=== PATIENT | female | born 1955 | race Caucasian/White ===

== ENCOUNTER → 2017-12-07 10:32 | Outpatient (CLI) | payer OTHER, SELFPAY ==
--- NOTE | 2017-12-07 10:35 | BI_ITS ---
MAMMOGRAPHY - BILATERAL SCREENING REASON FOR EXAM: Female, 62 years old. Routine annual screening examination. PERTINENT HISTORY: Aunt with breast cancer. TECHNIQUE: Digital bilateral breast leonor (3D mammographic acquisition) in the CC and MLO projections. 2-D mediolateral oblique (MLO) and craniocaudad (CC) views of both breasts were obtained. CAD: Full Field Digital Mammography with Computer Added Detection was performed. COMPARISON: Comparison is made with prior study dated October 07, 2016 and September 10, 2015. FINDINGS: Breast Composition: The breasts are extremely dense, which lowers the sensitivity of mammography. There are no dominant masses or suspicious calcifications. Stable small bilateral benign appearing axillary lymph nodes. No other significant abnormalities are identified. There has been no significant change since the prior study. BI/SCREENING MAMM (CAD), BILAT IMPRESSION: Stable bilateral screening mammogram. Yearly follow-up mammogram recommended. (A) ASSESSMENT CATEGORY: BIRADS Category 2: Benign. A letter regarding these results will be sent to the patient by the facility within 30 days. Approximately 10% of breast cancers are not detected by mammography. A normal mammogram should not delay biopsy of a clinically suspicious abnormality. [id number] Electronically Signed: Josue Linares MD at 12:51 EDT Tel [phone], Service support ,
== END ==
DX: Z12.31 Encounter for screening mammogram for malignant neoplasm of breast (principal)
CPT/HCPCS: 77063; 77067

== ENCOUNTER → 2018-07-08 16:10 | Outpatient (CLI) | payer OTHER, SELFPAY ==
--- NOTE | 2018-07-08 12:30 | COLBX_PTH ---
PATIENT: RHIANNON ROJAS LOC: [facility] U#:[id number] AGE/SX: 70/F ROOM: RE07/08/[address]: Dr. Carlo Gomez MD : 1955 BED: DIS: SPEC #: [id number] RECD: 07/08/18 15:49 STATUS: [facility] KATHE #: [id number] KAYLA: 07/08/18 12:[address]: Carlo Gomez DEPT: SURGICAL PATHOLOGY RECD BY: Mathew Avery ENTERED: 07/09/18 10:12 SP TYPE: COLON BX MARCELL DR: Dr. Amber Montanez, [facility] Tissues: A - COLON BIOPSY B - Transverse colon Procedures: Surgery Specimen Level IV HEADER OPERATION: Colonoscopy PRE-OP DIAGNOSIS: Chronic diarrhea TISSUE SUBMITTED: A - Right and left colon biopsies, rule out microscopic colitis, B - Transverse colon polyp biopsies MICROSCOPIC DIAGNOSIS A. Right and left colon, biopsy: No significant pathologic change. No evidence of colitis. B. Transverse colon polyp, biopsy: Fragments of tubular adenoma. AM:bina 07/12/18 MICROSCOPIC DESCRIPTION Slides are reviewed. GROSS DESCRIPTION A - Received in fixative is one container labeled with the patient's name and designated right and left colon biopsy. The specimen consists of multiple irregular fragments of light blake soft tissue that in aggregate measure 2 x 0.5 x 0.1 cm. The specimen is totally submitted in one cassette. B - Received in fixative is one container labeled with the patient's name and designated transverse polyp biopsy. The specimen consists of multiple irregular fragments of light blake soft tissue that in aggregate measure 0.4 x 0.3 x 0.1 cm. The specimen is totally submitted in one cassette. / SJ:bina 07/09/18 TC:5 [facility]: [id number] [id number]
--- OUTSIDE RECORDS SUMMARY | 2018-08-24 13:47 | XMS RPT_ITS ---
:1955 Author Organization [facility] Care Team Providers Name Role Phone DR. NATALY MONTANEZ DO Attending Unavailable MARIZA CÁRDENAS, DR. INGRAM Primary Care Unavailable ALTON THAKKAR MD Attending Unavailable MARIZA CÁRDENAS, DR. INGRAM Primary Care Unavailable MARIZA CÁRDENAS, DR. INGRAM Attending Unavailable MARIZA CÁRDENAS, DR. INGRAM Primary Care Unavailable Carlo Gomez Attending Unavailable Carlo Gomez Referring Unavailable Nataly Montanez Primary Care Unavailable Nataly Montanez Attending Unavailable Nataly Montanez Referring Unavailable Nataly Montanez Primary Care Unavailable PROBLEMS PROBLEMS DATE TYPE CONDITION / CODE ATTENDING STATUS SOURCE 12/07/2017 Unknown Patrice12.31 - Nataly Montanez Active Sadiq [facility] for Repository malignant neoplasm of breast / Z12.31(ICD-10) PROCEDURES PROCEDURES No Procedure Records FoundRESULTS RESULTS COLON BIOPSY (CHOOSE Observed: 07/08/2018 Status: F Source: [facility]) 12:30 PM [facility] REPOSITORY Patient: RHIANNON ROJAS : 1955 (63/F) Acct Num: [id number] Phys: Carlo Gomez Unit Num: [id number] Loc: LABSPEC Specimen: [id number] Received: 07/08/18 - 1549 Spec Type: COLON BX TISSUES 1 TISSUES: A. COLON BIOPSY B. Transverse colon GROSS DESCRIPTION A - Received in fixative is one container labeled with the patient's name and designated right and left colon biopsy. The specimen consists of multiple irregular fragments of light blake soft tissue that in aggregate measure 2 x 0.5 x 0.1 cm. The specimen is totally submitted in one cassette. B - Received in fixative is one container labeled with the patient's name and designated transverse polyp biopsy. The specimen consists of multiple irregular fragments of light blake soft tissue that in aggregate measure 0.4 x 0.3 x 0.1 cm. The specimen is totally submitted in one cassette. / SJ:bina TC:5 CPT: 59044 x2 HEADER OPERATION: Colonoscopy PRE-OP DIAGNOSIS: Chronic diarrhea TISSUE SUBMITTED: A - Right and left colon biopsies, rule out microscopic colitis, B - Transverse colon polyp biopsies MICROSCOPIC DESCRIPTION Slides are reviewed. MICROSCOPIC DIAGNOSIS A. Right and left colon, biopsy: No significant pathologic change. No evidence of colitis. B. Transverse colon polyp, biopsy: Fragments of tubular adenoma. AM:bina 07/12/18 Signed Santo More, 07/12/18 <signature on file> Performed By: #### PCOLBX #### [facility] [address] [place] [place], [address] CMP Collected: 06/10/2018 Status: F Source: [facility] 4:30 PM [facility] REPOSITORY TYPE CODE TESTS RESULT OUT OF REFERENCE UNITS RANGE LAB GLU(LOINC) 80-115 mg/dL Glucose Level 87 LAB NA(LOINC) 136-145 mmol/L Sodium Level 139 LAB K(LOINC) 3.5-5.1 mmol/L Potassium Level 4.3 LAB CL(LOINC) 98-107 mmol/L Chloride 102 LAB CO2(LOINC) 23-31 mmol/L CO2 29 LAB EBAL(LOINC mEq/L ) Electrolyte Balance 8.0 LAB BUN(LOINC) 7-18 mg/dL BUN 16 LAB CRE(LOINC) 0.55-1.02 mg/dL Creatinine Lvl (s) 0.86 LAB BC(LOINC) 7-27 ratio BUN/Creatinine 19 Ratio LAB CA(LOINC) 8.4-10.2 mg/dL Calcium Lvl 9.3 LAB PROT(LOINC 6.4-8.2 G/dL ) Total Protein 7.5 LAB ALB(LOINC) 3.4-4.8 G/dL Albumin Level 3.9 LAB GLB(LOINC) G/dL Globulin 3.6 LAB AG(LOINC) 1.1-2.5 ratio A/G Ratio 1.1 LAB BILT(LOINC 0.2-1.0 mg/dL ) Bili Total 0.3 LAB AP(LOINC) 40-135 U/L Alk Phos 84 LAB AST(LOINC) 10-40 U/L AST/SGOT 18 LAB ALT(LOINC) 10-35 U/L ALT/SGPT 34 Performed By: #### CMP, LIPID, TSH, GFR #### [address] [address] LIPID Collected: 06/10/2018 Status: F Source: [facility] 4:30 PM [facility] REPOSITORY TYPE CODE TESTS RESULT OUT OF REFERENCE UNITS RANGE LAB CHOL(LOINC 0-200 mg/dL ) Cholesterol 176 Result Comment: Cholesterol Reference Interval: Less than 200 Desirable 200-239 Borderline high risk 240 and above High risk LAB TRIG(LOINC) 0-150 mg/dL Triglycerides High 240 Result Comment: Triglyceride Reference Interval: Less than 150 Normal 150-199 Borderline high risk 200-499 High risk 500 or higher Very high risk LAB HD(LOINC) 40-60 mg/dL HDL Low Cholesterol 38 LAB LDL(LOINC) 0-130 mg/dL LDL Cholesterol 90 Performed By: #### CMP, LIPID, TSH, GFR #### [address] [address] TSH Collected: 06/10/2018 Status: F Source: [facility] 4:30 PM [facility] EM[facility]PART[facility] REPOSITORY TYPE CODE TESTS RESULT OUT OF RANGE REFERENCE UNITS LAB TSH(LOINC) 0.36-3.74 mcIU/mL TSH 3.55 Performed By: #### CMP, LIPID, TSH, GFR #### [place] [address] [place] [address] .GFR Collected: 06/10/2018 Status: F Source: [facility] 4:30 PM [facility] REPOSITORY TYPE CODE TESTS RESULT OUT OF REFERENCE UNITS RANGE LAB GFRAA(LOINC ml/min/1.73 ) sqm GFR 81 [place] Leonean Result Comment: GFR Population mean for , Non- Americans Ages 20-29 = 116 mL/min/1.73 sq.m. Ages 30-39 = 107 mL/min/1.73 sq.m. Ages 40-49 = 99 mL/min/1.73 sq.m. Ages 50-59 = 93 mL/min/1.73 sq.m. Ages 60-69 = 85 mL/min/1.73 sq.m. Ages 70+ = 75 mL/min/1.73 sq.m. Chronic Kidney Disease: Less than 60 mL/min/1.73 square meters End Stage Renal Disease: Less than 15 mL/min/1.73 square meters LAB GFRNO(LOINC) ml/min/1.73sqm GFR Non- 67 Result Comment: GFR Population mean for , Non- Americans Ages 20-29 = 116 mL/min/1.73 sq.m. Ages 30-39 = 107 mL/min/1.73 sq.m. Ages 40-49 = 99 mL/min/1.73 sq.m. Ages 50-59 = 93 mL/min/1.73 sq.m. Ages 60-69 = 85 mL/min/1.73 sq.m. Ages 70+ = 75 mL/min/1.73 sq.m. Chronic Kidney Disease: Less than 60 mL/min/1.73 square meters End Stage Renal Disease: Less than 15 mL/min/1.73 square meters Performed By: #### CMP, LIPID, TSH, GFR #### [address] [address] [address] ABDOMEN/PELVIS W/O Observed: 01/23/2018 Status: F Source: [facility] 6:29 PM [facility] REPOSITORY ORIGINAL CT ABDOMEN/PELVIS W/O CONTRAST: Multiplanar coronal, sagittal, and axial reconstructions were reviewed on a separate workstation This exam was performed according to our departmental dose optimization program, and includes the following measures where applicable: automated exposure control, adjustment of the mAs and/or kVp accord ing to patient size and/or exam, and an iterative reconstruction algorithm. CLINICAL STATEMENT: LEFT flank pain, LEFT flank pain that goes down LEFT leg, history of kidney stones COMPARISON: MRI of the kidneys 12/27/2013, CT abdomen/pelvis 06/03/2013 FINDINGS: Evaluation is suboptimal secondary to the lack of IV contrast. Included lung bases demonstrate no focal consolidation. There is no pleural or pericardial effusion. The kidney is hypoattenuating compared to the spleen, which be seen with fatty liver disease. The unenhanced gallbladder, pancreas, spleen, and adrenal glands are unremarkable. The kidneys are symmetric in size without hydronephrosis. The ureters are normal in caliber. There is bilateral nonobstructing renal calculi. There is a 4.6 cm renal cyst in the inferior pole of the RIG HT kidney. The bladder is partially distended without focal abnormality. The uterus is surgically absent. No adnexal mass or free pelvic fluid is seen. The small bowel and colon are normal in caliber. Anastomotic sutures are noted in the sigmoid colon. The appendix is not visualized but no pericecal inflammatory changes are seen. There is no free intraperitoneal air or fluid. The abdominal aorta is normal in caliber with mild calcified atherosclerosis. No lymphadenopathy is seen in the abdomen or pelvis. No acute or suspicious osseous abnormality is identified. IMPRESSION: Bilateral nonobstructing nephrolithiasis. No obstructive uropathy. No acute findings in the abdomen or pelvis. I have personally reviewed the images of this examination and agree with the resident's findings and interpretation. Interpreted By: Norman Gresham MD Preliminary Report By: Jayashree Goff DO Electronically Signed By: Norman Gresham MD Dictated Date: 01/23/2018 6:38:22 PM Prelim Date: 01/23/2018 6:44:00 PM Sign Date: 01/23/2018 6:56:40 PM CBC Collected: 01/23/2018 Status: F Source: [facility] 6:08 PM [facility] REPOSITORY TYPE CODE TESTS RESULT OUT OF REFERENCE UNITS RANGE LAB WBC(LOINC) 4.60-10.80 10 3/mcL High WBC 11.20 LAB RBCCT(LOINC 4.20-5.40 10 6/mcL ) RBC 4.38 LAB HGB(LOINC) 12.0-16.0 G/dL Hgb 13.4 LAB HCT(LOINC) 37.0-47.0 % Hct 39.2 LAB MCV(LOINC) 80.0-94.0 fL MCV 89.4 LAB MCH(LOINC) 27.0-31.2 pg MCH 30.5 LAB MCHC(LOINC) 33.0-37.0 G/dL MCHC 34.2 LAB RDW(LOINC) 11.5-14.5 % RDW 13.0 LAB PLT(LOINC) 130-400 10 3/mcL Platelet 340 LAB MPV(LOINC) 7.4-10.4 fL MPV 8.1 Performed By: #### CBC, ADIFF, ANEU, GFR, BMP #### [address] [address] .AUTO DIFF Collected: 01/23/2018 Status: F Source: [facility] 6:08 PM [facility] REPOSITORY TYPE CODE TESTS RESULT OUT OF REFERENCE UNITS RANGE LAB MELLISSA(LOINC) 37.0-80.0 % Neutrophil % 57.8 LAB LYM(LOINC) 10.0-50.0 % Lymphocyte % 34.4 LAB MON(LOINC) 1.7-13.0 % Monocyte % 6.3 LAB EO(LOINC) 0.0-7.0 % Eosinophil % 1.3 LAB BAS(LOINC) 0.0-2.5 % Basophil % 0.2 LAB ABLYM(LOIN 0.77-3.85 10 3/mcL C) High Lymphocyte, 3.90 Absolute LAB SHAR(LOINC 0.15-1.00 10 3/mcL ) Monocyte, 0.70 Absolute LAB AEOS(LOINC 0.00-0.40 10 3/mcL ) Eosinophil, 0.10 Absolute LAB ABAS(LOINC 0.00-0.19 10 3/mcL ) Basophil, 0.00 Absolute Performed By: #### CBC, ADIFF, ANEU, GFR, BMP #### [address] [address] .NEUABS Collected: 01/23/2018 Status: F Source: [facility] 6:08 PM [facility] REPOSITORY TYPE CODE TESTS RESULT OUT OF REFERENCE UNITS RANGE LAB ANEU(LOINC) 2.85-6.16 10 3/mcL High Neutrophil, 6.50 Absolute Performed By: #### CBC, ADIFF, ANEU, GFR, BMP #### [place] [address] [address] .GFR Collected: 01/23/2018 Status: F Source: [facility] 6:08 PM [facility] REPOSITORY TYPE CODE TESTS RESULT OUT OF REFERENCE UNITS RANGE LAB GFRAA(LOINC ml/min/1.73 ) sqm GFR >60 [place] Leonean Result Comment: GFR Population mean for , Non- Americans Ages 20-29 = 116 mL/min/1.73 sq.m. Ages 30-39 = 107 mL/min/1.73 sq.m. Ages 40-49 = 99 mL/min/1.73 sq.m. Ages 50-59 = 93 mL/min/1.73 sq.m. Ages 60-69 = 85 mL/min/1.73 sq.m. Ages 70+ = 75 mL/min/1.73 sq.m. Chronic Kidney Disease: Less than 60 mL/min/1.73 square meters End Stage Renal Disease: Less than 15 mL/min/1.73 square meters LAB GFRNO(LOINC) ml/min/1.73sqm GFR Non- >60 Result Comment: GFR Population mean for , Non- Americans Ages 20-29 = 116 mL/min/1.73 sq.m. Ages 30-39 = 107 mL/min/1.73 sq.m. Ages 40-49 = 99 mL/min/1.73 sq.m. Ages 50-59 = 93 mL/min/1.73 sq.m. Ages 60-69 = 85 mL/min/1.73 sq.m. Ages 70+ = 75 mL/min/1.73 sq.m. Chronic Kidney Disease: Less than 60 mL/min/1.73 square meters End Stage Renal Disease: Less than 15 mL/min/1.73 square meters Performed By: #### CBC, ADIFF, ANEU, GFR, BMP #### [place] [address] [address] BMP Collected: 01/23/2018 Status: F Source: [facility] 6:08 PM [facility] REPOSITORY TYPE CODE TESTS RESULT OUT OF REFERENCE UNITS RANGE LAB GLU(LOINC) 80-115 mg/dL Glucose Level 96 LAB NA(LOINC) 136-146 mEq/L Sodium Level 143 LAB K(LOINC) 3.5-5.1 mEq/L Potassium Level 4.3 LAB CL(LOINC) 98-107 mEq/L Chloride 104 LAB CO2(LOINC) 23-31 mEq/L CO2 26 LAB EBAL(LOINC mEq/L ) Electrolyte Balance 13.0 LAB BUN(LOINC) 7.0-18.0 mg/dL BUN 15.5 LAB CRE(LOINC) 0.6-1.2 mg/dL Creatinine Lvl (s) 0.8 LAB BC(LOINC) 7-27 ratio BUN/Creatinine 19 Ratio LAB CA(LOINC) 8.4-10.2 mg/dL Calcium Lvl 9.8 Performed By: #### CBC, ADIFF, ANEU, GFR, BMP #### [place] [address] [place], [place] [address] UA Collected: 01/23/2018 Status: F Source: [facility] 5:14 PM [facility] REPOSITORY TYPE CODE TESTS RESULT OUT OF RANGE REFERENCE UNITS LAB SPCUA(AMAN NC) UA Specimen Type Void LAB CLRUA(AMAN NC) UA Color Yellow LAB APPUA(AMAN Clear NC) UA Appear Unknown Cloudy LAB SGUA(LOIN C) UA Spec Grav 1.025 LAB GLUA(LOIN Negative mg/dL C) UA Glucose Negative LAB BILUA(AMAN Negative NC) UA Bili Negative LAB KETUA(AMAN Negative mg/dL NC) UA Ketones Negative LAB BLDUA(AMAN Negative NC) UA Blood Unknown Large LAB PHUA(LOIN C) UA pH 6.0 LAB PROUA(AMAN Negative mg/dL NC) UA Protein Trace LAB UROUA(AMAN E.U./dL NC) UA Urobilinogen 0.2 LAB NITUA(AMAN Negative NC) UA Nitrite Negative LAB LEUUA(AMAN Negative NC) UA Leuk Est Unknown Small Performed By: #### UA, UAMICAO #### [place] [address] [place], [place] [address] .URINALYSIS MICROSCOPIC Collected: 01/23/2018 Status: F Source: [facility] (AO) 5:14 PM [facility] REPOSITORY TYPE CODE TESTS RESULT OUT OF RANGE REFERENCE UNITS LAB WBCUA(LOIN None Seen /hpf C) Unknown UA WBC 10-15 LAB RBCUA(LOIN None Seen /hpf C) Unknown UA RBC LOADED LAB EPIUA(LOIN None Seen /hpf C) Unknown UA Squam Epithelial 5-10 LAB MUCUA(LOIN /hpf C) UA Mucous Trace LAB BACUA(LOIN /hpf C) Unknown UA Bacteria Trace Performed By: #### UA, UAMICAO #### [place] [address] [place], [place] [address] SCREENING MAMM (CAD), Observed: 12/07/2017 Status: F Source: [facility] BILAT 10:35 AM [facility] REPOSITORY [facility] Imaging Services [address] [place] [address] SCREENING MAMM (CAD), BIL MR#: [id number] Acct: [id number] Name: RHIANNON ROJAS Rep #: [id number] : 1955 F 62 From: Josue Linares MD PCP: Nataly Montanez DO Status: REG CLI Study: SCREENING MAMM (CAD), BIL Date of Exam: 12/07/17 Exam# [id number] Ordering Dr: Nataly Montanez DO MAMMOGRAPHY - BILATERAL SCREENING REASON FOR EXAM: Female, 62 years old. Routine annual screening examination. PERTINENT HISTORY: Aunt with breast cancer. TECHNIQUE: Digital bilateral breast leonor (3D mammographic acquisition) in the CC and MLO projections. 2-D mediolateral oblique (MLO) and craniocaudad (CC) views of both breasts were obtained. CAD: Full Field Digital Mammography with Computer Added Detection was performed. COMPARISON: Comparison is made with prior study dated October 07, 2016 and September 10, 2015. FINDINGS: Breast Composition: The breasts are extremely dense, which lowers the sensitivity of mammography. There are no dominant masses or suspicious calcifications. Stable small bilateral benign appearing axillary lymph nodes. No other significant abnormalities are identified. There has been no significant change since the prior study. BI/SCREENING MAMM (CAD), BILAT IMPRESSION: Stable bilateral screening mammogram. Yearly follow-up mammogram recommended. (A) ASSESSMENT CATEGORY: BIRADS Category 2: Benign. A letter regarding these results will be sent to the patient by the facility within 30 days. Approximately 10% of breast cancers are not detected by mammography. A normal mammogram should not delay biopsy of a clinically suspicious abnormality. [id number] Electronically Signed: Josue Linares MD at 12:51 EDT Tel [phone], Service support , CC: Nataly Montanez DO Instrumentation Tech: Signed TSH Collected: 10/13/2017 Status: F Source: [facility] 5:06 PM [facility] REPOSITORY TYPE CODE TESTS RESULT OUT OF RANGE REFERENCE UNITS LAB TSH(LOINC) 0.27-4.20 mcIU/mL TSH 1.88 Performed By: #### TSH, LIPID, GFR, CMP #### [place] [address] [place], [place] [address] LIPID Collected: 10/13/2017 Status: F Source: [facility] 5:06 PM [facility] REPOSITORY TYPE CODE TESTS RESULT OUT OF REFERENCE UNITS RANGE LAB CHOL(LOINC 131-200 mg/dL ) Cholesterol 181 Result Comment: Cholesterol Reference Interval: Less than 200 Desirable 200-239 Borderline high risk 240 and above High risk LAB TRIG(LOINC) 40-150 mg/dL Triglycerides High 178 Result Comment: Triglyceride Reference Interval: Less than 150 Normal 150-199 Borderline high risk 200-499 High risk 500 or higher Very high risk LAB HD(LOINC) 35-90 mg/dL HDL Cholesterol 51 Result Comment: HDL Reference Interval: Less than 40 Low - high risk 60 or above Optimal/lowers risk LAB LDL(LOINC) 0-130 mg/dL LDL Cholesterol 94 Result Comment: LDL is a calculated result and requires a 12-hr fast. LDL Reference Interval: Less than 100 Optimal 100-129 Near or above optimal 130-159 Borderline high risk 160-189 High risk 190 and above Very high risk Performed By: #### TSH, LIPID, GFR, CMP #### [place] [address] [place], [place] [address] .GFR Collected: 10/13/2017 Status: F Source: [facility] 5:06 PM [facility] REPOSITORY TYPE CODE TESTS RESULT OUT OF REFERENCE UNITS RANGE LAB GFRAA(LOINC ml/min/1.73 ) sqm GFR 95 [place]an Result Comment: GFR Population mean for , Non- Americans Ages 20-29 = 116 mL/min/1.73 sq.m. Ages 30-39 = 107 mL/min/1.73 sq.m. Ages 40-49 = 99 mL/min/1.73 sq.m. Ages 50-59 = 93 mL/min/1.73 sq.m. Ages 60-69 = 85 mL/min/1.73 sq.m. Ages 70+ = 75 mL/min/1.73 sq.m. Chronic Kidney Disease: Less than 60 mL/min/1.73 square meters End Stage Renal Disease: Less than 15 mL/min/1.73 square meters LAB GFRNO(LOINC) ml/min/1.73sqm GFR Non- >60 Result Comment: GFR Population mean for , Non- Americans Ages 20-29 = 116 mL/min/1.73 sq.m. Ages 30-39 = 107 mL/min/1.73 sq.m. Ages 40-49 = 99 mL/min/1.73 sq.m. Ages 50-59 = 93 mL/min/1.73 sq.m. Ages 60-69 = 85 mL/min/1.73 sq.m. Ages 70+ = 75 mL/min/1.73 sq.m. Chronic Kidney Disease: Less than 60 mL/min/1.73 square meters End Stage Renal Disease: Less than 15 mL/min/1.73 square meters Performed By: #### TSH, LIPID, GFR, CMP #### [place] [address] [place], [place] [address] CMP Collected: 10/13/2017 Status: F Source: [facility] 5:06 PM [facility] REPOSITORY TYPE CODE TESTS RESULT OUT OF REFERENCE UNITS RANGE LAB 1547-9 80-115 mg/dL GLUCOSE 103 LAB NA(LOINC) 136-146 mEq/L Sodium Level 138 LAB K(LOINC) 3.5-5.1 mEq/L Potassium Level 4.5 LAB CL(LOINC) 98-107 mEq/L Chloride 102 LAB CO2(LOINC) 23-31 mEq/L CO2 28 LAB EBAL(LOINC mEq/L ) Electrolyte Balance 8.0 LAB BUN(LOINC) 7.0-18.0 mg/dL BUN High 18.1 LAB CRE(LOINC) 0.6-1.2 mg/dL Creatinine Lvl (s) 0.8 LAB BC(LOINC) 7-27 ratio BUN/Creatinine 23 Ratio LAB CA(LOINC) 8.4-10.2 mg/dL Calcium Lvl 9.9 LAB PROT(LOINC 6.0-8.3 G/dL ) Total Protein 7.9 LAB ALB(LOINC) 3.4-4.8 G/dL Albumin Level 4.3 LAB GLB(LOINC) G/dL Globulin 3.6 LAB AG(LOINC) 1.1-2.5 ratio A/G Ratio 1.2 LAB BILT(LOINC 0.2-1.0 mg/dL ) Bili Total 0.3 LAB AP(LOINC) 40-135 IU/L Alk Phos 73 LAB AST(LOINC) 10-40 IU/L AST/SGOT 21 LAB ALT(LOINC) 10-35 IU/L ALT/SGPT 30 Performed By: #### TSH, LIPID, GFR, CMP #### [place] [address] [address] ALLERGIES ALLERGIES No Allergies Records FoundENCOUNTERS ENCOUNTERS ADMIT/DISCHARGE ACCOUNT NUMBER ADMITTING ENCOUNTER LOCATION SOURCE CLASS 07/08/2018 [id number] Ambulatory [facility] ding:LABSPEC Repository 06/10/2018/06/10/20 [id number] Ambulatory BBuilding:OL [address] Repository 01/23/2018/01/24/20 [id number] Emergency BBuilding:ER [address] Repository 12/07/2017 [id number] Ambulatory [facility] ding:OPBI Repository 10/13/2017/10/14/19 [id number] Ambulatory [address] ding:OL [facility] Repository PAYERS PAYERS ENCOUNTER GUARANTOR PAYER SUBSCRIBER SOURCE 07/08/2018 BARRY Sandoval Primary RHIANNON SHOUPDOB: Sadiq [id number] Insurance:[facility] [id number] [place] Number: Repository [id number]: [phone] () Date:2018-07-08[address] [address]VY: 07/08/2018 Secondary NOT GIVENUNK [place] Insurance:SELF PAY [facility] Number: Effective Repository Date:2018-07-08 06/10/2018 RHIANNON SHOUPDOB: Primary RHIANNON SHOUPDOB: [facility] [id number] Insurance:[facility] [id number] [place] [address] Repository [place], [place] Number: [place] [address]~SHOUPTOYHA [id number]: [email or web address]) [email or web address] Date:2018-06-10 [phone] Tel: [phone] (HP) Name:ASHOK BILLY 000-0000 (WP) (HP)Tel: [phone], [place] [phone] (ON) [address]RR: 01/23/2018 RHIANNON SHOUPDOB: Primary RHIANNON SHOUPDOB: [facility] [id number] Insurance:[facility] [id number] [address] [place]ository [place], [place] Number: [place] [address]~SHOUPTOYHA [id number]: [phone]) [email or web address] Date:2018-01-23 [phone] Tel: [phone] (HP) Name:JERALD BILLY 000-0000 (WP) (HP)Tel: [phone], [place] [phone] (WP) [id number]: 12/07/2017 Barry A Primary RHIANNON SHOUPDOB: Sadiq [id number] Insurance:MEDICAL [id number] [facility] Number: Repository [id number]: [phone] [id number] (HP) Date:2017-11-12[address] [address]RB: 12/07/2017 Secondary NOT GIVENUNK [place] Insurance:SELF PAY [facility] Number: Effective Repository Date:2017-11-12 10/13/2017 RHIANNON SHOUPDOB: Primary RHIANNON SHOUPDOB: [facility] [id number] Insurance:MEDICAL [id number] [address] Number: [facility] [place] [address]~[facility] [id number] [id number]: (088) [email or web address] Date:2017-10-13 [phone] Tel: [phone] (HP) Name:JERALD CRUZFIGUEROA WENCESLAO 000-0000 (WP) (HP)Tel: [phone], [place] [phone] (WP) [id number]:
== END ==
PROVIDERS: Referring Provider Internal Medicine Gastroenterology; Visit Provider Internal Medicine Gastroenterology
DX: K52.9 Noninfective gastroenteritis and colitis, unspecified (principal)
CPT/HCPCS: 88305

== ENCOUNTER 2019-02-16 12:06 | Day surgery (SDC) | payer OTHER, SELFPAY ==
[2019-02-16 12:40] VITALS: BP 128/68; PULSE 75; RESP 16; TEMP 36.6; O2SAT 99; BMI 36.8
[2019-02-16] MEDS: Lubricating Jelly 60 GM Tube 30 GM TOPICAL (14:37)
--- NOTE | 2019-02-16 14:48 | DCINST_ITS ---
Discharge Diet: Light diet - advance as tolerated Discharge Activity: Return to Normal Activity Return to work on:: 02/18/19 May shower in (days): 1 May resume sexual activity in: No Restrictions Call your doctor if you observe: Fever of 101 or Higher Instructions: Ureteral Stents Allergies/Adverse Reactions: Allergies latex Allergy (Verified 02/16/19 12:38) Rash Medications to take at Discharge Amlodipine Besylate [Norvasc] 5 mg PO DAILY 02/14/19 Ibuprofen [Advil] 200 mg PO DAILY PRN 02/14/19 Levothyroxine [Synthroid] 175 mcg PO DAILY 02/14/19 Losartan/Hydrochlorothiazide [Losartan-Hctz 50-12.5 mg Tab] 1 ea PO DAILY 02/14/19 Tamsulosin HCl [Flomax] 0.4 mg PO QHS 02/14/19 Ciprofloxacin [Cipro] 500 mg PO BID #6 tab 02/16/19 The following prescriptions were given: Ciprofloxacin [Cipro] 500 mg PO BID #6 tab Prescription Printed Primary Care Physician: Amber Montanez DO [Primary Care Provider] - Test Results: Test results from this visit will be discussed in further detail at your follow- up appointment, if applicable. Please Follow Up With: Zay Padilla MD When: in 2 weeks, please call to make an appointment.
--- NOTE | 2019-02-16 14:50 | PCM.OPRPT ---
Report of Operation Date of Procedure: 02/16/19 Pre-Operative Diagnosis: Right ureteral stricture partial obstruction hydronephrosis Post-Operative Diagnosis: Same Surgery/Procedure Performed:: Cystoscopy, right retrograde pyelogram, balloon dilation of the ureter, right stent placement Description of Surgical Findings:: 63-year-old female was found to have a hydronephrotic right kidney with a proximal right hydroureter down to the pelvis and she has history of prior abdominal surgery multiple surgeries fairly complex. CAT scan was done and there calling for a possible stone but on my review I do not see a stone think she has some sort of functional stricture in the mid ureter recommended we proceed with a retrograde pyelogram to evaluate the stricture balloon dilation and placement of the stent. She is been having a lot of pain in the right flank and her right kidney area. 63-year-old female taken back to the operating room at the smooth induction of general anesthesia she was placed in dorsal lithotomy position. The urethra vaginal area prepped and draped in usual fashion, went into the bladder with a 21 Turkmen rigid cystourethroscope. Inspected the bladder the bladder was normal the right ear ureter right and left ureteral orifice were identified, no tumors or stones were seen within the bladder, I think cannulated the right ureteral orifice with a Glidewire and a Pollack catheter I performed a retrograde pyelogram and can see contrast going up the ureter nice and smooth normal then became narrow and then a dilated real large the dilated ureter all the way to the kidney on the right side of put a lot of contrast up in the kidney and I can then observe to the kidney he can see peristalsis within the ureter coming down to the area of narrowing he could see that the peristalsis was actually pushing urine through the area of narrowing but it was not complete narrowing but it was a functional obstruction in the mid ureter. I then advanced the balloon dilator to the area of the obstruction balloon dilated the ureter with a 15 Turkmen balloon dilator, after balloon dilating the ureter then I placed a stent on the right side it was a 6 Turkmen 24 cm stent was a stent coiled in the kidney bladder good condition drained the bladder you could see a lot of contrast draining through the stent quite rapidly and then I drained the bladder patient anesthetic was reversed taken back to PACU good condition plan to see her back in a few weeks for checkup and then will plan to get the stent out about 6 weeks to see how she does without it appears to have a minor stricture in the mid ureter with functional blockage still able to drain the kidney but it causes some mild hydronephrosis and hydroureter of the right kidney from some chronic scar tissue developed around the ureter. Type of Anesthesia:: General Drains: right stent - Admit VTE Documentation VTE Present on Admission: No VTE Mechan Device Prophylaxis: SCD's
[2019-02-16 14:56] VITALS: BP 128/68; BP 98/65; PULSE 98; RESP 16; TEMP 36.5; O2SAT 92
[2019-02-16 15:00] VITALS: BP 124/65; BP 128/68; PULSE 88; RESP 16; O2SAT 94
[2019-02-16 15:15] VITALS: BP 128/68; BP 129/69; PULSE 85; RESP 16; O2SAT 95
[2019-02-16 15:20] VITALS: BP 128/68; BP 132/73; PULSE 82; RESP 16; TEMP 36.3; O2SAT 95
[2019-02-16 15:44] VITALS: BP 128/61; BP 128/68; PULSE 80; RESP 18; TEMP 36.4; O2SAT 95
== END 2019-02-16 15:45 | disposition home or self-care (01) ==
LOC: SDC 12:10 → AC 12:19
PROVIDERS: Referring Provider Urology; Visit Provider Urology
PROC: (CPT 52332; principal; 2019-02-16 14:25)
DX: N13.1 Hydronephrosis with ureteral stricture, not elsewhere classified (principal); I10 Essential (primary) hypertension; E03.9 Hypothyroidism, unspecified; Z78.0 Asymptomatic menopausal state; Z79.899 Other long term (current) drug therapy; Z87.442 Personal history of urinary calculi; Z85.828 Personal history of other malignant neoplasm of skin
CPT/HCPCS: 00910; 52332; 52341; 76000; J7120; C1726; C1769; C2617; J2405

== ENCOUNTER → 2019-04-06 09:55 | Outpatient (CLI) | payer OTHER, SELFPAY ==
--- NOTE | 2019-04-06 09:59 | NM_ITS ---
CLINICAL: 64-year-old female with reported history of right ureteral stricture. 99m Tc MAG3 DIURETIC RENAL SCINTIGRAPHY COMPARISON: None available FINDINGS: Following the intravenous administration of 10.8 mCi of 99m Tc MAG3, renal images reveal: 1. The flow study demonstrates relatively symmetric arterial phase distribution of the radiopharmaceutical to the right-left kidneys. 2. Immediate static delayed nephrogram images depict prompt, homogeneous tracer concentration by the renal parenchyma of the left kidney and superior-mid pole of the right kidney. Decreased tracer concentration is noted in the inferior pole of the smaller right renal unit. Collecting structure visualization is defined at approximately 3 minutes following tracer injection bilaterally. Washout of the radiopharmaceutical by the renal parenchyma appears qualitatively normal in both kidneys. Prominent collecting system activity is noted during 21 minutes of pre-Lasix sequential image acquisition (R > L). 3. The [id number]-xb-[id number] ratio of total renal parenchymal function was calculated to be 43/57. Furosemide 10 mg was administered intravenously. The post Lasix T 1/2 washout of the bilateral kidney collecting system activity was calculated to be < 10 minutes, (normal < 10 minutes). NM/Renal Scan w/ Pharm Intervent IMPRESSION: 1. There is relative preservation of bilateral renal parenchymal, cortical function. 2. The prominent right and left kidney collecting systems demonstrate a normal physiologic response to induced diuresis negating the presence of significant mechanical and/or functional obstruction. Electronically Signed: Maximilian Turner DO at 14:36 EDT Tel , Service support ,
== END ==
LOC: US 04-05 14:05 → NM 09:57
PROVIDERS: Referring Provider Urology; Visit Provider Urology
DX: N13.5 Crossing vessel and stricture of ureter without hydronephrosis (principal)
CPT/HCPCS: 78708; A9562; J1940

== ENCOUNTER 2020-06-08 05:21 | Day surgery (SDC) | payer OTHER, SELFPAY ==
[2020-06-08] VITALS (7 sets, daily range): BP systolic 123–137; BP diastolic 64–81; PULSE 95–105; RESP 16–18; TEMP 36.4–37.2; O2SAT 92–100; BMI 36.1
[2020-06-08] MEDS: Lactated Ringers 1,000 ML 100 ML IV (05:49)
[2020-06-08] MEDS: Cefazolin 2 GM in 0.9% Normal Saline 100 ML IV (07:40)
[2020-06-08] MEDS: Lubricating Jelly 60 GM Tube 30 GM TOPICAL (07:40)
--- NOTE | 2020-06-08 07:59 | PCM.HP.STD ---
Problem List (1) Ureteral calculi Status: Acute History of Present Illness Date of Admission: 06/08/20 Chief Complaint: Ureteral calculi The patient is a 65 year old female who has a history of a stricture in the right mid ureter she presented to outside hospital with a stone in the same location so we were concerned that whether she had a stricture recurrence but we did take her back to surgery and go up with the ureteroscope inspect the ureter and then treat the stone possibly place a stent made the balloon dilate the stricture if it is present. Past Medical History Allergies latex Allergy (Verified 06/08/20 05:33) Rash loratadine [From Claritin-D] Allergy (Verified 06/08/20 05:33) tachycardia pseudoephedrine [From Claritin-D] Allergy (Verified 06/08/20 05:33) tachycardia meperidine [From Demerol] Adverse Reaction (Verified 06/08/20 05:33) PT UNSURE OF REACTION Home Medications: Ambulatory Orders Medication Instructions Recorded Amlodipine Besylate [Norvasc] 5 mg PO DAILY 02/14/19 Levothyroxine [Synthroid] 125 mcg PO DAILY 02/14/19 Losartan/Hydrochlorothiazide 1 ea PO DAILY 02/14/19 [Losartan-Hctz 50-12.5 mg Tab] Acetaminophen [Tylenol Extra 500 - 1,000 mg PO Q6H PRN PRN 06/06/20 Strength] Cholecalciferol (Vitamin D3) 5,000 unit PO DAILY 06/06/20 [Vitamin D3] Surgical History: no surgical history Smoking Status: Never smoker Tobacco Use: Non-smoker Review of Systems Constitutional: Denies: Chills, Fever, Weight Change HEENT: Denies: Head Aches, Sinus Congestion, Sinus Drainage Cardiovascular: Denies: Chest Pain, Palpitations Respiratory: Denies: Cough, Shortness of breath at rest, Sputum production Gastrointestinal: Denies: Abdominal Pain, Nausea, Vomiting Genitourinary: Denies: Dysuria Musculoskeletal: Denies: Joint Pain, Joint Tenderness Skin: Denies: Rash, Wounds Neurological: Denies: Numbness, Tingling, Focal weakness Psychiatric: Denies: Anxiety, Depression, Homicidal Ideations, Suicidal Ideations Hematologic/ Lymphatic: Denies: Easy Bruising, Easy Bleeding VTE Information - Inpt Only VTE Present on Admission: No - Physical Exam Vitals/I&O's: Vital Signs Temp Pulse Resp BP Pulse Ox 99.0 F 105 H 16 135/69 H 94 06/08/20 05:44 06/08/20 05:44 06/08/20 05:44 06/08/20 05:44 06/08/20 05:44 Oxygen Delivery Method Room Air Weight: 89.5 kg Body Mass Index (BMI) 36.1 Intake and Output for Last 24 Hours 06/06/20 06/07/20 06/08/20 23:59 23:59 23:59 Intake Total 110 / 110 Balance 110 / 110 General: Alert, Oriented x3, Cooperative HEENT: Atraumatic, PERRLA, EOMI, Normocephalic Neck: Supple, No JVD, Negative Carotid Bruits Lungs: Clear to auscultation, Normal air movement Cardiovascular: Regular rate, No murmurs Abdomen: Bowel Sounds Present, Soft, Non Tender Extremities: No edema, Capillary Refill Less than 3 Seconds Skin: No rashes, No breakdown Musculoskeletal: No Tenderness to Palpation of Joints or Extremities Neurological: Cranial nerves II-XII grossly intact Psych/Mental Status: Normal Affect, Appropriate Microbiology Past 72 Hours 06/07/20 10:28 Interface Orders SARS-CoV-2 Antigen (Rapid) - Final Current Medications Cefazolin Sodium 2 gm/ Sodium (Chloride) 110 mls @ 150 mls/hr IV PREOP ONE Stop: 06/08/20 12:08 Last Infusion: 06/08/20 07:51 Dose: Infused Documented by: Lactated Ringer's () 1,000 mls @ 100 mls/hr IV .Q10H JÚNIOR Last Admin: 06/08/20 05:49 Dose: 100 mls/hr Documented by: Assessment/Plan All Active Problems Ureteral calculi (Acute) Plan to proceed with ureteroscopy in the right side possible balloon dilation laser lithotripsy and stent placement.
--- NOTE | 2020-06-08 08:06 | PCM.DC.URO ---
Discharge Diet: Light diet - advance as tolerated Discharge Activity: May Not Drive, May not drive while taking narcotic pain medications. Call your doctor if your incision/area has: Sudden Increased Bleeding, Increased Pain/ Swelling Suture Line Care: Avoid Pulling/Pushing, Avoid Pinching/Bending Allergies/Adverse Reactions: Allergies latex Allergy (Verified 06/08/20 05:33) Rash loratadine [From Claritin-D] Allergy (Verified 06/08/20 05:33) tachycardia pseudoephedrine [From Claritin-D] Allergy (Verified 06/08/20 05:33) tachycardia meperidine [From Demerol] Adverse Reaction (Verified 06/08/20 05:33) PT UNSURE OF REACTION Medications to take at Discharge Amlodipine Besylate [Norvasc] 5 mg PO DAILY 02/14/19 Levothyroxine [Synthroid] 125 mcg PO DAILY 02/14/19 Losartan/Hydrochlorothiazide [Losartan-Hctz 50-12.5 mg Tab] 1 ea PO DAILY 02/14/19 Acetaminophen [Tylenol Extra Strength] 500 - 1,000 mg PO Q6H PRN PRN 06/06/20 Cholecalciferol (Vitamin D3) [Vitamin D3] 5,000 unit PO DAILY 06/06/20 Ciprofloxacin [Cipro] 500 mg PO BID #6 tab 06/08/20 Hydrocodone/Acetaminophen [[place] 5-325 Tablet] 1 ea PO Q4H PRN PRN 7 Days #14 tab 06/08/20 Ibuprofen 600 mg PO Q4H PRN PRN 10 Days #20 tab 06/08/20 The following prescriptions were given: Ciprofloxacin [Cipro] 500 mg PO BID #6 tab Transmission Status: Pending to [facility] Ibuprofen 600 mg PO Q4H PRN PRN 10 Days #20 tab PRN Reason: Pain Score 1-10 Transmission Status: Pending to [facility] Hydrocodone/Acetaminophen [[place] 5-325 Tablet] 1 ea PO Q4H PRN PRN 7 Days #14 tab PRN Reason: Pain Score 1-10 Transmission Status: Pending to [facility] Primary Care Physician: Amber Montanez DO [Primary Care Provider] - Test Results: Test results from this visit will be discussed in further detail at your follow-up appointment, if applicable. Please Follow Up With: Zay Padilla MD When: please call to make an appointment.
--- NOTE | 2020-06-08 08:08 | PCM.OPRPT ---
Problem List (1) Ureteral calculi Status: Acute Report of Operation Date of Procedure: 06/08/20 Pre-Operative Diagnosis: Right mid ureteral calculi history of ureteral stricture Post-Operative Diagnosis: Same Surgery/Procedure Performed:: Cystoscopy right retrograde pyelogram right ureteroscopy laser lithotripsy of stone, interpretation fluoroscopic images right stent placement Description of Surgical Findings:: 65-year-old female she has a history of a stricture in the mid right ureter she has a stone on recent admission to outside hospital had to have a stent placed she now presents to the operating room for ureteroscopy and laser lithotripsy possible balloon dilation of the stricture. Patient was taken back to the operating room at the smooth induction of general anesthesia. She was placed in dorsolithotomy position. The urethra vaginally are prepped and draped in usual sterile fashion. Went into the bladder with a 21 South African rigid cystourethroscope. Grabbed the existing stent pulled out the meatus. I then advanced a wire through the stent up in the kidney. I then left the wire in place I then put a Pollack catheter over the wire performed a retrograde pyelogram nice smooth contrast all the way up no stricture was evident. Hard to see the stone. I then went in with a semirigid ureteroscope was able to get the ureter quite a ways but I still could not reach the stone and the angle was too difficult so then I pulled out the semirigid and then I went in with a flexible ureteroscope was able to get into the ureter. Went up the ureter went past the area where supposedly the stricture was without any problems with the flexible scope and then I got to the stone. I then used a 270 ?m laser fiber laser the stone completely and little tiny pieces. Energy settings were 0.6 Hz and 0.6 J. Increase the hertz to 18 Hz. The stone was lasered completely smaller pieces. I work my way down the ureter again the area that was narrowed was nice wide open there was no stricture. Therefore nothing needs to be dilated no balloon dilation was performed. I work my way down the ureter. And over the safety wire that was in place I advanced a stent is a 6 South African by 26 cm stent. Once the stent was in good position I pulled the string the stent: The kidney bladder good position I did leave a string on the stent but cut it short to prevent early extraction. I need to see the patient about a week for cystoscopy stent removal. Type of Anesthesia:: General Drains: stent right side - Admit VTE Documentation VTE Present on Admission: No VTE Mechan Device Prophylaxis: SCD's
[2020-06-08] MEDS: Ketorolac 15 MG/ML Vial IV (08:34)
== END 2020-06-08 09:21 | disposition home or self-care (01) ==
LOC: SDC 05:22 → AC 05:23
PROVIDERS: Referring Provider Urology; Visit Provider Urology
PROC: 0TJ98ZZ Inspection of Ureter, Via Natural or Artificial Opening Endoscopic (ICD-10-PCS; CPT 52352; principal; 2020-06-08 07:20)
DX: N20.1 Calculus of ureter (principal); Z20.828 Contact with and (suspected) exposure to other viral communicable diseases; I10 Essential (primary) hypertension; Z78.0 Asymptomatic menopausal state; Z79.899 Other long term (current) drug therapy
CPT/HCPCS: 00918; 52356; 76000; 87426; C9803; J7120; C1769; C2617; J2405

== ENCOUNTER → 2020-07-10 07:44 | Outpatient (CLI) | payer OTHER, SELFPAY ==
[2020-06-08 05:44] VITALS: BMI 36.1
--- NOTE | 2020-07-10 07:48 | CT_ITS ---
STUDY: CT ABDOMEN AND PELVIS WITH AND WITHOUT CONTRAST REASON FOR EXAM: Female, 65 years old. CROSSING VESSEL/STRICTURE OF URETER, LB TENDERNESS, STENT IN RT KIDNEY PLACED 05/27 AND REMOVED 06/18, SURG-RT KIDNEY STENT, HOANG/BSO, APPY, MELANOMA REMOVED FROM RT SHOULDER, PARTIAL COLECTOMY RADIATION DOSAGE (If Supplied By Facility): CTDIvol = ( 22.78 ) mGy, DLP = ( 3823.3 ) mGycm TECHNIQUE: Transaxial images were obtained from the dome of the diaphragm to the symphysis pubis without oral contrast. IV 100mL Isovue-300 was administered. Sagittal and coronal images were reconstructed. Individualized dose optimization techniques were used for this CT. COMPARISON: None. FINDINGS: The visualized lung bases are unremarkable. The visualized portions of the heart are within normal limits. There is decreased attenuation of the liver consistent with steatosis. Normal gallbladder and extrahepatic biliary system. Normal spleen. Normal pancreas. There is a small, circumscribed, smooth, low attenuation left adrenal mass, consistent with an adrenal adenoma. This measures 8.9 mm. Normal right adrenal gland. There is a 3.6 cm x 3.5 cm cyst in the lower pole of the right kidney. 1 cm cyst in the upper anterior aspect of the right kidney. 1.1 cm cyst in the lateral midportion of the right kidney. Mild degree of right hydronephrosis and mild hydroureter down to the urinary bladder. There is diffuse circumferential thickening of the right renal pelvis and the proximal right ureter. No obstructive uropathy is seen at this time. Normal left kidney. There is a small hiatal hernia. Normal small intestine. Surgical anastomosis seen in the sigmoid colon. There are surgical clips in the region of the appendix consistent with a prior appendectomy. There is scattered atherosclerotic calcification of the abdominal aorta, without a demonstrated aneurysm. Normal inferior vena cava. There is borderline retroperitoneal lymphadenopathy with enlarged nodes no greater than 10mm in the short axis diameter. Normal urinary bladder. There is absence of the uterus consistent with a prior hysterectomy. Normal abdominal wall. There are mild degenerative changes of the visualized lumbar spine. Mild loss of height of the superior endplate of the L4 vertebrae. CT/CT Abd/Pelvis W/WO Contrast IMPRESSION: Mild degree of right hydronephrosis and hydroureter with diffuse parenchymal thickening of the distal portion of the right renal pelvis and proximal portion of the right ureter. Endoscopic correlation is recommended. Right renal cysts. Diffuse fatty infiltration of the liver. Small hiatal hernia. Electronically Signed: Josue Linares, at 9:08 EST , Service support ,
== END ==
PROVIDERS: Referring Provider Urology; Visit Provider Urology
DX: N13.5 Crossing vessel and stricture of ureter without hydronephrosis (principal)
CPT/HCPCS: 74178; Q9967

== ENCOUNTER 2020-10-05 11:39 | Day surgery (SDC) | payer OTHER, SELFPAY ==
[2020-06-08 05:44] VITALS: BMI 36.1
[2020-10-05 12:14] VITALS: BP 127/73; PULSE 82; RESP 16; TEMP 36.2; O2SAT 98; BMI 36.3
[2020-10-05] MEDS: Lactated Ringers 1,000 ML 100 ML IV (12:32)
--- NOTE | 2020-10-05 15:00 | PCM.HP.STD ---
Problem List (1) Ureteral stricture Status: Suspected Comment: Right possible ureteral stricture History of Present Illness Date of Admission: 10/05/20 Chief Complaint: Right flank pain The patient is a 65 year old female with history of prior abdominal surgery and she has had 2 stone events this past year in both the stones and up in the same place in the ureter on the right side and what could be a stricture but last time I balloon dilated and looked up and there was the ureter was wide open but she is still having pain in that right side and still having occasional urinary tract infections. She is being treated for a most recent urinary tract infection plan to do a cystoscopy and retrograde pyelogram to see if there is a stricture in the ureter and if there is a stricture we may have to consider doing a surgical repair/reimplantation of the right ureter. At this point we just can proceed with diagnostic cystoscopy retrograde pyelogram possible ureteroscopy. Past Medical History Allergies latex Allergy (Verified 10/05/20 12:12) Rash loratadine [From Claritin-D] Allergy (Verified 10/05/20 12:12) tachycardia pseudoephedrine [From Claritin-D] Allergy (Verified 10/05/20 12:12) tachycardia meperidine [From Demerol] Adverse Reaction (Verified 10/05/20 12:12) PT UNSURE OF REACTION Home Medications: Ambulatory Orders Medication Instructions Recorded Amlodipine Besylate [Norvasc] 5 mg PO DAILY 02/14/19 Levothyroxine [Synthroid] 125 mcg PO DAILY 02/14/19 Losartan/Hydrochlorothiazide 1 ea PO DAILY 02/14/19 [Losartan-Hctz 50-12.5 mg Tab] Acetaminophen [Tylenol Extra 500 - 1,000 mg PO Q6H PRN PRN 06/06/20 Strength] Cholecalciferol (Vitamin D3) 5,000 unit PO DAILY 06/06/20 [Vitamin D3] Cranberry Conc/Ascorbic Acid 1 ea PO DAILY 10/02/20 [Cranberry 12,600 mg Softgel] Ibuprofen 200 mg PO Q6H PRN PRN 10/02/20 Sulfamethoxazole/Trimethoprim 1 ea PO BID 10/02/20 [Bactrim Ds Tablet] Zinc Gluconate [Zinc] 50 mg PO DAILY 10/02/20 Surgical History: no surgical history Lives: Spouse/ Significant Other Smoking Status: Never smoker Tobacco Use: Non-smoker Alcohol: None - *Family History Maternal History Items: No pertinent history Review of Systems Constitutional: Denies: Chills, Fever, Weight Change HEENT: Denies: Head Aches, Sinus Congestion, Sinus Drainage Cardiovascular: Denies: Chest Pain, Palpitations Respiratory: Denies: Cough, Shortness of breath at rest, Sputum production Gastrointestinal: Denies: Abdominal Pain, Nausea, Vomiting Genitourinary: Denies: Dysuria Musculoskeletal: Denies: Joint Pain, Joint Tenderness Skin: Denies: Rash, Wounds Neurological: Denies: Numbness, Tingling, Focal weakness Psychiatric: Denies: Anxiety, Depression, Homicidal Ideations, Suicidal Ideations Hematologic/ Lymphatic: Denies: Easy Bruising, Easy Bleeding VTE Information - Inpt Only VTE Present on Admission: No VTE Mechan Device Prophylaxis: SCD's - Physical Exam Vitals/I&O's: Vital Signs Temp Pulse Resp BP Pulse Ox 97.1 F L 82 16 127/73 H 98 10/05/20 12:14 10/05/20 12:14 10/05/20 12:14 10/05/20 12:14 10/05/20 12:14 Oxygen Delivery Method Room Air Weight: 90 kg Body Mass Index (BMI) 36.3 General: Alert, Oriented x3, Cooperative HEENT: Atraumatic, PERRLA, EOMI, Normocephalic Neck: Supple, No JVD, Negative Carotid Bruits Lungs: Clear to auscultation, Normal air movement Cardiovascular: Regular rate, No murmurs Abdomen: Bowel Sounds Present, Soft, Non Tender Extremities: No edema, Capillary Refill Less than 3 Seconds Skin: No rashes, No breakdown Musculoskeletal: No Tenderness to Palpation of Joints or Extremities Neurological: Cranial nerves II-XII grossly intact Psych/Mental Status: Normal Affect, Appropriate Microbiology Past 72 Hours 10/04/20 10:25 Interface Orders SARS-CoV-2 Antigen (Rapid) - Final Current Medications Lactated Ringer's () 1,000 mls @ 100 mls/hr IV .Q10H JÚNIOR Last Admin: 10/05/20 12:32 Dose: 100 mls/hr Documented by: Assessment/Plan Plan to proceed with a diagnostic retrograde pyelogram to evaluate for possible ureteral stricture on the right side.
--- NOTE | 2020-10-05 15:03 | DCINST_ITS ---
Discharge Diet: Light diet - advance as tolerated Discharge Activity: Return to Normal Activity Call your doctor if you observe: Fever of 101 or Higher Allergies/Adverse Reactions: Allergies latex Allergy (Verified 10/05/20 12:12) Rash loratadine [From Claritin-D] Allergy (Verified 10/05/20 12:12) tachycardia pseudoephedrine [From Claritin-D] Allergy (Verified 10/05/20 12:12) tachycardia meperidine [From Demerol] Adverse Reaction (Verified 10/05/20 12:12) PT UNSURE OF REACTION Medications to take at Discharge Amlodipine Besylate [Norvasc] 5 mg PO DAILY 02/14/19 Levothyroxine [Synthroid] 125 mcg PO DAILY 02/14/19 Losartan/Hydrochlorothiazide [Losartan-Hctz 50-12.5 mg Tab] 1 ea PO DAILY 02/14/19 Acetaminophen [Tylenol Extra Strength] 500 - 1,000 mg PO Q6H PRN PRN 06/06/20 Cholecalciferol (Vitamin D3) [Vitamin D3] 5,000 unit PO DAILY 06/06/20 Cranberry Conc/Ascorbic Acid [Cranberry 12,600 mg Softgel] 1 ea PO DAILY 10/02/20 Ibuprofen 200 mg PO Q6H PRN PRN 10/02/20 Sulfamethoxazole/Trimethoprim [Bactrim Ds Tablet] 1 ea PO BID 10/02/20 Zinc Gluconate [Zinc] 50 mg PO DAILY 10/02/20 Primary Care Physician: Amber Montanez DO [Primary Care Provider] - Test Results: Test results from this visit will be discussed in further detail at your follow- up appointment, if applicable. Please Follow Up With: Zay Padilla MD When: in 2 weeks, please call to make an appointment.
[2020-10-05] MEDS: Cefazolin 2 GM in 0.9% Normal Saline 100 ML IV (15:23)
--- NOTE | 2020-10-05 15:44 | PCM.OPRPT ---
Problem List (1) Ureteral stricture Status: Suspected Comment: Right possible ureteral stricture Report of Operation Date of Procedure: 10/05/20 Pre-Operative Diagnosis: Right flank pain possible ureteral stricture Post-Operative Diagnosis: Same, normal retrograde pyelogram Surgery/Procedure Performed:: Cystoscopy right retrograde pyelogram Description of Surgical Findings:: 65-year-old female with a history of kidney stones presented with right flank pain again she has a history of a stricture in the past with balloon dilated and she is concerned that the strictures come back so today we can do a retrograde pyelogram to evaluate the kidney ureter and bladder on the right side. Patient was taken back to the operating at the [facility] of general anesthesia she was placed in dorsolithotomy position, the urethra and vaginal area were prepped and draped in usual sterile fashion I went in the bladder with a 21 Cameroonian rigid cystourethroscope cannulated the right ureteral orifice with a Pollick catheter, I then performed a retrograde pyelogram and can see contrast going all the way up along the course of the ureter there was no stricture on the retrograde pyelogram once the contrast up in the kidney then took out the Pollick catheter and the contrast drained very rapidly and easily with no obstruction on that right side. The ureter was completely normal with no stricture drainage was normal there was no hydronephrosis patient's bladder was drained and the cystoscope were removed and she was taken back to PACU in good condition I spoke to her regarding the findings. Type of Anesthesia:: General Drains: none - Admit VTE Documentation VTE Present on Admission: No VTE Mechan Device Prophylaxis: SCD's
[2020-10-05 15:52] VITALS: BP 103/54; BP 127/73; PULSE 77; RESP 16; TEMP 36.7; O2SAT 90
[2020-10-05 16:00] VITALS: BP 116/67; BP 127/73; PULSE 77; RESP 18; O2SAT 97
[2020-10-05 16:09] VITALS: BP 109/57; BP 127/73; PULSE 77; RESP 18; TEMP 36.6; O2SAT 93
[2020-10-05 17:09] VITALS: BP 112/62; BP 127/73; PULSE 76; RESP 18; TEMP 36.7; O2SAT 96
== END 2020-10-05 17:11 | disposition home or self-care (01) ==
LOC: SDC 11:39 → AC 11:40
PROVIDERS: Referring Provider Urology; Visit Provider Urology
PROC: (CPT 52332; principal; 2020-10-05 13:35)
DX: R10.9 Unspecified abdominal pain (principal); I10 Essential (primary) hypertension; E06.9 Thyroiditis, unspecified; Z79.2 Long term (current) use of antibiotics; Z79.899 Other long term (current) drug therapy; Z20.822 Contact with and (suspected) exposure to COVID-19
CPT/HCPCS: 52005; 76000; 87426; C9803; J7120; C1769; J2405

== ENCOUNTER → 2022-03-03 | Outpatient (CLI) | payer MEDICARE, SELFPAY ==
--- NOTE | 2022-03-03 14:21 | CT_ITS ---
HISTORY: PAIN. TECHNIQUE: Helically acquired images were obtained of the abdomen and pelvis without oral or IV contrast. A radiation dose optimization technique was used for this scan. 425 images. COMPARISON: 07/10/2020. FINDINGS: LOWER CHEST: Lung bases clear. BOWEL: Bowel nondilated. Appendix not visualized. Rectosigmoid anastomosis. No focal pericolonic inflammatory change. PERITONEUM: No significant free fluid. LIVER: Fatty infiltration. GALLBLADDER/BILIARY TREE: Gallbladder present. SPLEEN/PANCREAS: Not enlarged. KIDNEYS AND URETERS: 2 mm right renal and 1 mm left renal calculi. No hydronephrosis. 4.6 x 5.7 cm right lower pole cyst, previously 3.2 x 4.1 cm. ADRENAL GLANDS: No nodules. VESSELS: No abdominal aortic aneurysm. Mild atherosclerosis. PELVIC ORGANS: Hysterectomy with surgical clips in the right lower quadrant and pelvis. BONES: Mild degenerative change. Chronic minimal anterior wedging of L4. CT/Abdomen/Pelvis without Cont IMPRESSION: Small nonobstructing bilateral renal calculi. Mildly increased size of right renal cyst. Hepatic steatosis. Electronically Signed: Juliet Vazquez MD at 10:42 EDT ,
== END | disposition home or self-care (01) ==
LOC: CT 14:20
PROVIDERS: Referring Provider Urology; Visit Provider Urology
DX: R10.9 Unspecified abdominal pain (principal)
CPT/HCPCS: 74176

== ENCOUNTER → 2022-08-05 | Outpatient (CLI) | payer MEDICARE, SELFPAY ==
--- NOTE | 2022-08-05 13:46 | RAD_ITS ---
STUDY: X-RAY - ABDOMEN/PELVIS REASON FOR EXAM: Female, 67 years old. Flank pain TECHNIQUE: Two AP supine views of the abdomen and pelvis. COMPARISON: None. FINDINGS: Normal visualized lung bases. There is an unremarkable bowel gas pattern. There is no demonstrated free abdominal air. The visualized liver, spleen and kidneys are grossly normal in size and morphology. No calcifications noted overlying either renal shadow, or along the expected course of either ureter. Normal soft tissue structures. Normal visualized osseous structures. RAD/Abdomen Single View IMPRESSION: Normal x-ray examination of the abdomen and pelvis. Electronically Signed: Abdiel Early MD at 10:26 EST ,
== END | disposition home or self-care (01) ==
LOC: RAD 13:45
PROVIDERS: Referring Provider Urology; Visit Provider Urology
DX: N20.0 Calculus of kidney (principal)
CPT/HCPCS: 74018

== ENCOUNTER 2022-08-13 12:24 | Day surgery (SDC) | payer MEDICARE, SELFPAY ==
[2022-08-13] MEDS: Lactated Ringers 1,000 ML 15 ML IV (12:46)
[2022-08-13 12:48] VITALS: BP 151/77; PULSE 100; RESP 18; TEMP 37; O2SAT 99; BMI 36.2
[2022-08-13] MEDS: Cefazolin 2 GM in 0.9% Normal Saline 100 ML IV (14:01)
--- NOTE | 2022-08-13 14:11 | DCINST_ITS ---
Discharge Instructions Diet Discharge Diet: No restrictions Follow Up Care Please Follow Up With: Zay Padilla MD Test Results: Test results from this visit will be discussed in further detail at your follow- up appointment, if applicable. Discharge Plan Admission Primary Reason for Your Visit: right kidney stone Attending Provider: Zay Padilla Primary Care Provider: Amber Montanez Discharge Orders/Prescriptions Prescriptions: Continued levothyroxine 175 MCG tablet 125 mcg PO DAILY amlodipine 5 MG tablet 5 mg PO DAILY losartan-hydrochlorothiazide 1 EACH tablet 1 ea PO DAILY acetaminophen 500 MG tablet 500 - 1,000 mg PO Q6H PRN PRN (Reason: Pain 1-10 Or Fever) Cholecalciferol (Vitamin D3) [Vitamin D3] 5,000 UNIT capsule 5,000 unit PO DAILY ibuprofen 200 MG capsule 200 mg PO Q6H PRN PRN (Reason: Pain 1-10 Or Fever) Airborne (ascorbate sodium) 333-1.7 mg Tablet,Chewable 1 tab PO DAILY Referrals / Follow Up: Zay Padilla MD [Med Staff - Active Staff] - Amber Montanez DO [Primary Care Provider] - Disposition Disposition (needs filled in before D/C Order can be placed): Home, Self Care
--- NOTE | 2022-08-13 14:34 | PCM.OPRPT ---
Report of Operation Date of Procedure: 08/13/22 Pre-Operative Diagnosis: Right ureteral calculi with obstruction Post-Operative Diagnosis: Same Surgery/Procedure Performed:: Cystoscopy, right retrograde pyelogram, interpretation of fluoroscopic images, balloon dilation of the ureter, right ureteroscopy laser lithotripsy of stone and stent placement Description of Surgical Findings:: This is a patient who presents to the hospital for treatment for an obstructing RIGHT ureter calculi. I discussed with the patient how the surgery would be performed and we reviewed the risks and benefits of the surgery. The risk and benefits include the risk of failure to remove the stone completely and that the patient may need multiple procedures. We discussed the risk of an infection, the risk of bleeding. We discussed the very rare risk of serious complicated injury to the ureter. The patient understands that if the stone is not able to be removed safely that we may abort the procedure and place a stent. After full discussion and all questions address with the patient the consent form was signed the side was marked appropriately and the patient was taken back to the operating room for the procedure. The patient was taken back to the operating room. After induction of anesthesia by the anesthesiology team the patient was placed in dorsolithotomy position. The genitals were prepped and draped in usual sterile fashion. I went into the bladder with a 21 [place] rigid cystourethroscope through the urethra. Upon entering the bladder I inspected the trigone the left and right ureteral orifice and the bladder itself. I then cannulated the Right ureteral orifice and advanced a 0.038 Glidewire up into the kidney. Then over the Glidewire I advanced a 5 Fr Ureteral catheter and performed a retrograde pyelogram with about 10cc of contrast, to delineate the anatomy and identify the stone location. Then a ureteral balloon dilator was advanced over the wire and the distal ureter was balloon dilated with a 12 Fr x 5cm balloon dilator. After 3 minutes of dilating the ureter the balloon was backloaded off the 0.038 glidewire over the 0.038 guidewire I went in with the flexible 7.5fr ureteroscope. I was able to go inside with the 7.5Fr utereroscope and I pulled out the guidewire and then through the ureteroscope I engage the stone with laser lithotripsy using a 270miron laser fiber with energy setting of 6 Hertz and 0.6 J until the stone was lasered into tiny little pieces that should pass on their own. A retrograde pyelogram was performed with 10cc of contrast and no extravasation of contrast or perforation was identified in the ureter there was some mild irritation of the ureter where the stone was located. I then inspected the right kidney upper pole midpole lower pole with a flexible ureteroscope and no other stone was seen. I then backed out of the ureter left the wire in place and then over the 0.038 guidewire I placed a double coiled pigtail ureteral stent. The ureteral stent was advanced over the 0.038 guidewire under direct fluoroscopic guidance and direct cystoscopic visual guidance, once the stent was in good position I pulled the wire and the stent coiled in the kidney and bladder in good position. I then drained the patient's bladder and the cystoscope was removed and the patient was taken back to the recovery room in good position. The patient was given discharge instructions to call the office for instructions on when to come to the office to have the stent removed. Surgeon: Zay Padilla Type of Anesthesia: General Drains: stent Admit VTE Documentation VTE Present on Admission: No VTE Mechan Device Prophylaxis: SCD's
[2022-08-13 14:43] VITALS: BP 133/74; BP 151/77; PULSE 86; RESP 16; TEMP 36.2; O2SAT 98
[2022-08-13 15:00] VITALS: BP 124/77; BP 151/77; PULSE 86; RESP 16; O2SAT 93
[2022-08-13] MEDS: Ketorolac 15 MG/ML Vial IV (15:02)
[2022-08-13 15:15] VITALS: BP 139/67; BP 151/77; PULSE 87; RESP 16; O2SAT 94
[2022-08-13 15:20] VITALS: BP 129/92; BP 151/77; PULSE 82; RESP 16; TEMP 36.4; O2SAT 94
[2022-08-13 15:46] VITALS: BP 151/77
== END 2022-08-13 15:55 | disposition home or self-care (01) ==
LOC: SDC 12:24 → AC 12:25
PROVIDERS: Visit Provider Urology
PROC: 0TJ98ZZ Inspection of Ureter, Via Natural or Artificial Opening Endoscopic (ICD-10-PCS; CPT 52352; principal; 2022-08-13 14:20)
DX: N20.1 Calculus of ureter (principal); I10 Essential (primary) hypertension; E03.9 Hypothyroidism, unspecified; Z79.890 Hormone replacement therapy; Z79.899 Other long term (current) drug therapy; Z87.442 Personal history of urinary calculi
CPT/HCPCS: 52356; 00918; 76000; J7120; C1769; J2405

== ENCOUNTER → 2023-06-04 | Outpatient (CLI) | payer MEDICARE, SELFPAY | END | disposition home or self-care (01) | LOC: LABSPEC 16:27 | PROVIDERS: Referring Provider Nurse Practitioner; Visit Provider Nurse Practitioner | DX: R10.9 Unspecified abdominal pain (principal) | CPT/HCPCS: 87077; 87086; 87088; 87186 ==